=== PATIENT | male | born 1965 | race Caucasian/White ===

== ENCOUNTER → 2016-08-10 | Outpatient (CLI) | payer BC ==
--- NOTE | 2016-08-13 08:31 | DI ---
XR KNEE 3 VW,08/10/2016 1:49 PM: Clinical History: Acute right knee pain Previous Exam: None at this facility. Findings: 3 views of the right knee are obtained, and demonstrate anatomic alignment without fractures. There a re mild degenerative changes noted of the undersurface of the patella. There is no evidence of knee joint effusion. There are some surgical clips seen within the posterior right hamstring area. Impression: Mild degenerative changes of the anterior compartment otherwise unremarkable.
== END ==
LOC: RAD 16:01
PROVIDERS: ATTEND Physician Assistant
DX: M25.561 Pain in right knee (principal); M17.11 Unilateral primary osteoarthritis, right knee; M94.262 Chondromalacia, left knee; M94.261 Chondromalacia, right knee
CPT/HCPCS: 73562

== ENCOUNTER → 2016-08-20 | Outpatient (CLI) | payer BC ==
--- NOTE | 2016-08-20 10:02 | DI ---
MRI LOW EXTREMITY JNT W/O CN,08/20/2016 8:06 AM: Clinical History: Right knee pain. Previous Exam: None at this facility. Findings: Multiplanar MR images are obtained through the right knee without contrast. There are full-thickness osteochondral defects involving the anterior compartment within the trochlea r cartilage and within the medial and lateral patellar facets. . The medial and lateral collateral ligaments are also intact. There is a tear of the posterior horn and body of the medial meniscus exiting on the undersurface. Th e lateral meniscus demonstrates a horizontal cleavage tear of the body of the meniscus. There is a ganglion cyst associated with popliteus tendon. The arcuate ligament is intact. There are loose bodies noted within the posterior knee joint. There is some mild increased signal inv olving the distal quadriceps tendon and the proximal patellar tendon. There is no evidence of Davidson's cyst. The major vascular flow voids are unremarkable. Impression: 1. 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 These are likely the source of the loose bodies within the posterior knee joint. 2. Horizontal cleavage tear of the body of the lateral meniscus. 3. Oblique tear of the posterior horn and body of the medial meniscus.
--- NOTE | 2016-08-20 14:19 | DI ---
XR FOOT COMPLETE MIN 3VW,08/20/2016 2:01 PM: Clinical History: Left foot pain. 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 Surrounding soft tissues are unremarkable. Impression: No significant change from prior.
== END ==
LOC: MRI 07:58
PROVIDERS: ATTEND Orthopaedic Surgery
DX: M25.561 Pain in right knee (principal); M79.672 Pain in left foot; S83.281A Other tear of lateral meniscus, current injury, right knee, initial encounter; M23.221 Derangement of posterior horn of medial meniscus due to old tear or injury, right knee
CPT/HCPCS: 73630; 73721

== ENCOUNTER 2016-08-24 10:59 | Day surgery (SDC) | payer BC ==
[~2016-08-24 10:59] MED LIST: LIDOCAINE W/ SODIUM BICARB 0.5 ML SYR ONE; Lactated Ringers 1,000 ML PRIMARY IV ONE; ceFAZolin Inj 2gm (Premix) 50 ML IV ONE
[2016-08-24] MEDS ORDERED: ONDANSETRON 4 MG/2 ML VIAL ONE (11:50)
[2016-08-24] MEDS ORDERED: MIDAZOLAM 5 MG/1 ML ONE (12:02)
[2016-08-24] MEDS ORDERED: LIDOCAINE MPF 2% - 5 ML (20 MG/1 ML) ONE (12:02)
[2016-08-24] MEDS ORDERED: fentaNYL Inj 250 MCG/5 ML VIAL ONE ×2 (12:03→14:00)
[2016-08-24] MEDS ORDERED: Ropivacaine 0.2% VIAL 20 ML ONE (12:10)
[2016-08-24] MEDS ORDERED: EPINEPHrine Inj (1:1,000) 30mg/30ml vial ONE (12:10)
[2016-08-24] MEDS ORDERED: Lactated Ringers 1,000 ML PRIMARY IV ONE (13:10)
[2016-08-24] MEDS ORDERED: BUPivacaine Liposome/PF (Exparel) Inj 20ml vial INFIL ONE ×2 (13:27→13:35)
[2016-08-24] MEDS ORDERED: KETOROLAC 30 MG/1 ML VIAL ONE (13:41)
[2016-08-24] MEDS ORDERED: BETAMET ACET/BETAMET NA PH 6 MG/1 ML - 5 ML IAC ONE (14:07)
[2016-08-24] MEDS ORDERED: BETAMET ACET/BETAMET NA PH 6 MG/1 ML - 5 ML ONE (14:11)
[2016-08-24] MEDS ORDERED: Prochlorperazine Edisylate Inj 10mg/2ml vial IVP PRN (14:29)
[2016-08-24] MEDS ORDERED: NORMAL SALINE 10 ML SYRINGE FLUSH IVP PRN ×2 (14:29→14:50)
[2016-08-24] MEDS ORDERED: Meperidine Inj 50 MG/ML CARPUJECT IVP PRN (14:29)
[2016-08-24] MEDS ORDERED: HYDROmorphone 2 MG/1 ML IVP PRN (14:29)
[2016-08-24] MEDS ORDERED: Lactated Ringers 1,000 ML PRIMARY IV SCH ×2 (14:30→15:00)
[2016-08-24] MEDS ORDERED: HYDROmorphone 2 MG/1 ML ONE (14:35)
[2016-08-24] MEDS ORDERED: MAG HYDROX/AL HYDROX/SIMETH 30 ML SUSP PO PRN (14:50)
[2016-08-24] MEDS ORDERED: BISACODYL 5 MG TABLET PO PRN (14:50)
[2016-08-24] MEDS ORDERED: ACETAMINOPHEN 325 MG TABLET PO PRN (14:50)
[2016-08-24] MEDS ORDERED: BISACODYL 10 MG SUPPOSITORY RECTAL PRN (14:50)
[2016-08-24] MEDS ORDERED: diphenhydrAMINE 25 MG CAPSULE PO PRN (14:50)
[2016-08-24] MEDS ORDERED: HYDROcodone-APAP 7.5 MG-325 MG TABLET PO PRN (14:50)
[2016-08-24] MEDS ORDERED: Prochlorperazine Tab 10 MG TAB PO PRN (14:50)
[2016-08-24] MEDS ORDERED: Ondansetron ODT Tab 8 MG TAB PO PRN (14:50)
[2016-08-24] MEDS ORDERED: CALCIUM CARBONATE 500 MG (TUMS) CHEWABLE TABLET PO PRN (14:50)
[2016-08-24] MEDS ORDERED: IBUPROFEN 400 MG TABLET PO PRN (14:50)
[2016-08-24] MEDS ORDERED: MORPHINE SULFATE 2 MG/1 ML IVP PRN (14:50)
[2016-08-24] MEDS ORDERED: ONDANSETRON 4 MG/2 ML VIAL IVP PRN (14:50)
[2016-08-24] MEDS ORDERED: HYDROcodone-APAP 7.5 MG-325 MG TABLET PO ONE (15:17)
[2016-08-24 16:07] VITALS: RESP 16
[2016-08-24 16:09] VITALS: TEMP 98
== END 2016-08-24 15:50 | disposition home or self-care (01) ==
LOC: SDSC 10:59
PROVIDERS: ATTEND Orthopaedic Surgery
DX: S83.241A Other tear of medial meniscus, current injury, right knee, initial encounter (principal); T84.9XXA Unspecified complication of internal orthopedic prosthetic device, implant and graft, initial encounter; M79.672 Pain in left foot
CPT/HCPCS: 20680; 29875; 29881; 76000; C9290; J0171; J0690; J0702; J1885; J2704; J2795; J3010; J1170; J2001; J2250; J2405; J7120

== ENCOUNTER → 2017-01-03 | Outpatient (CLI) | payer BC ==
--- NOTE | 2017-01-03 14:03 | DI ---
LEFT KNEE, 01/03/2017 10:56 AM: Clinical History: Left knee pain. Previous Exam: None at this facility. 4 views are submitted. The AP and tunnel projections are weight bearing views. There is no acute soft tissue, osseous, or joint abnormality. Mild narrowing of the medial compartment is present indicatin g degenerative change. Reading: Mild degenerative joint space narrowing is present in the medial compartment.
== END ==
LOC: ORTHO 11:11
PROVIDERS: ATTEND Physician Assistant
DX: M94.262 Chondromalacia, left knee (principal); M25.562 Pain in left knee; M17.12 Unilateral primary osteoarthritis, left knee
CPT/HCPCS: 73564